=== PATIENT | male | born 1970 | race Caucasian/White ===

== ENCOUNTER 2017-05-23 12:16 | Emergency (ER) | payer MEDICAID ==
[~2017-05-23] VITALS: Ht 170.2 cm; Wt 85.8 kg
[2017-05-23 13:03] VITALS: BP 123/86
[2017-05-23] MEDS ORDERED: NACL 0.9% 500 ML IV SCH (13:06)
[2017-05-23] MEDS ORDERED: MORPHINE SULFATE 10 MG/ML SYR IVP ONE (13:10)
[2017-05-23] MEDS ORDERED: ONDANSETRON 4 MG/2 ML VIAL IVP ONE (13:10)
--- NOTE | 2017-05-23 13:13 | NUR ---
patient ambulted to bed#8
[2017-05-23 13:21] LABS: BASOPHILS # (AUTO) 0.2 K/uL (0.00-0.22); BASOPHILS % (AUTO) 2.1 % (0.0-2.0); EOSINOPHILS # (AUTO) 0.1 K/uL (0-0.4); EOSINOPHILS % (AUTO) 1.2 % (0.0-4.0); HEMATOCRIT 45.7 % (36-52); HEMOGLOBIN 15.3 g/dL (12.0-18.0); MEAN CORPUSCULAR HEMOGLOBIN 31 pg (27-31); MEAN CORPUSCULAR HGB CONC 33 g/dL (33-37); MEAN CORPUSCULAR VOLUME 92 fL (80-94); MONOCYTES # (AUTO) 0.4 K/uL (0.8-1.0); MONOCYTES % (AUTO) 5.8 % (1.7-9.3); NEUTROPHILS # (AUTO) 4.9 K/uL (1.8-7.7); NEUTROPHILS % (AUTO) 64.9 % (42.2-75.2); PLATELET COUNT (AUTO) 246 K/uL (140-450); RED BLOOD CELL COUNT(AUTO) 4.99 MIL/uL (4.20-6.10); RED CELL DISTRIBUTION WIDTH 12.2 % (11.6-13.7); WHITE BLOOD COUNT (AUTO) 7.6 K/uL (4.8-10.8)
[2017-05-23 13:28] LABS: ANION GAP 13.7 (8-16); CALCIUM 8.9 mg/dL (8.5-10.1); CARBON DIOXIDE 26.3 mmol/L (21-32); CREATININE 0.9 mg/dL (0.7-1.3)
[2017-05-23 13:34] LABS: ALBUMIN 4.5 g/dL (3.4-5.0); TOTAL BILIRUBIN 0.8 mg/dL (0.0-1.0); TOTAL PROTEIN, SERUM 8.3 g/dL (6.4-8.2)
--- NOTE | 2017-05-23 13:55 | NUR ---
PATIENT PRESENTS TO ED WITH C/O RIGHT FLANK PAIN RADIATING TO ABDOMEN X 5 DAYS---DENIES DYSURIA, LOOSE STOOLS WITH NAUSEA ,VOMITING AND DIARRHEA TODAY TODAY, FATIGUE VISITIED PMD X 4 DAYS; SKIN IS PINK/WARM/DRY; AAOX4 WITH EVEN AND STEADY GAIT; LUNGS CLEAR BL; HR EVEN AND REGULAR; PT DENIES ANY FEVER, CP, SOB, OR COUGH AT THIS TIME; PATIENT STATES PAIN OF 9/10 AT THIS TIME; PATIENT POSITIONED FOR COMFORT; HOB ELEVATED; BEDRAILS UP X2; BED DOWN. ALL MONITORS IN PLACED.
--- NOTE | 2017-05-23 14:03 | NUR ---
Patient taken to CT scan via wheelchair by tech.
--- NOTE | 2017-05-23 14:34 | NUR ---
PT C/O OF BURNING SENSATION ONTHE UPPER ABDOMEN;ER MD NOTIFIED.
[2017-05-23] MEDS ORDERED: FAMOTIDINE 20 MG/2 ML VIAL IVP ONE (14:35)
[2017-05-23] MEDS ORDERED: MORPHINE SULFATE 4 MG/ML SYR IVP ONE (14:35)
--- NOTE | 2017-05-23 15:30 | NUR ---
PT RESTING ON BED;NO ACUTE DISTRESS NOTED.
[2017-05-23 16:05] VITALS: BP 130/78
--- NOTE | 2017-05-23 16:05 | NUR ---
Patient discharged with v/s stable. Written and verbal after care instructions given and explained. Patient alert, oriented and verbalized understanding of instructions. Ambulatory with steady gait. All questions addressed prior to discharge. ID band removed. Patient advised to follow up with PMD. Rx of ZOFRAN AND TYLENOL given. Patient educated on indication of medication including possible reaction and side effects. Opportunity to ask questions provided and answered.
[2017-05-23 16:28] LABS: APPEARANCE,URINE CLEAR (CLEAR); BILIRUBIN,URINE NEGATIVE (NEGATIVE); BLOOD, URINE NEGATIVE (NEGATIVE); COLOR,URINE YELLOW (YELLOW); LEUKOCYTE ESTERASE ,URINE NEGATIVE (NEGATIVE); NITRITE, URINE NEGATIVE (NEGATIVE); PROTEIN,URINE NEGATIVE (NEGATIVE); UGLUCOSE NEGATIVE (NEGATIVE); UROBILINOGEN,URINE 0.2 EU/dL (0.2 - 1)
== END 2017-05-23 16:05 | disposition home or self-care (01) ==
LOC: MED 12:16
DX: M85.68 Other cyst of bone, other site (principal); R10.9 Unspecified abdominal pain; Z90.49 Acquired absence of other specified parts of digestive tract
CPT/HCPCS: 36415; 74176; 80053; 81003; 82150; 83690; 85025; 96361; 96374; 96375; 96376; 99285; C1758; J2270; J2405; J3490; J7030

== ENCOUNTER 2020-04-14 12:27 | Emergency (ER) | payer MEDICAID ==
[~2020-04-14] VITALS: Ht 165.1 cm; Wt 83.0 kg
[2020-04-14 12:29] VITALS: BP 172/99
--- NOTE | 2020-04-14 12:37 | NUR ---
BIB SELF C/O LEFT FLANK PAIN X 4 DAYS. DENIES DYSURIA OR N/V. PATIENT STATES PAIN OF 9/10 AT THIS TIME. BP 172/99 AT THIS TIME. PATIENT POSITIONED FOR COMFORT; HOB ELEVATED; BEDRAILS UP X1; BED DOWN. ER MD MADE AWARE OF PT STATUS.
--- NOTE | 2020-04-14 12:39 | NUR ---
PT AMB TO BED 12
--- NOTE | 2020-04-14 13:07 | NUR ---
dr licona at bedside
[2020-04-14] MEDS ORDERED: KETOROLAC 60 MG/2 ML VIAL IM ONE (13:10)
--- NOTE | 2020-04-14 13:15 | NUR ---
tordaol im administered
--- NOTE | 2020-04-14 13:59 | NUR ---
nadr, pain 02/23
[2020-04-14 14:00] VITALS: BP 155/78
== END 2020-04-14 14:00 | disposition home or self-care (01) ==
LOC: MED 12:27
DX: R10.9 Unspecified abdominal pain (principal); Z90.49 Acquired absence of other specified parts of digestive tract
CPT/HCPCS: 81002; 96372; 99283; J1885